=== PATIENT | male | born 1970 | race African-American/Black ===

== ENCOUNTER 2016-08-29 09:27 | Emergency (ER) | payer OTHER ==
[~2016-08-29 09:27] MED LIST: ALDACTONE25 MG PO; ASPIRIN325 MG PO; BENICAR *OUT OF20 MG PO; CATAPRES0.1 MG PO; DRISDOL50000 UNIT PO; EFFIENT10 MG PO; FARXIGA10 MG PO; HCTZ25 MG PO; HUMALOG SQ; LANTUS **100 UNITS/ SQ; LIPITOR40 MG PO; LOPRESSOR25 MG PO; METFORMIN HCL500 MG PO; NORVASC5 MG PO; VICTOZA 2-0.6 MG/0.1 SQ
== END 2016-08-29 12:16 | disposition home or self-care (01) ==
LOC: FER 09:27
DX: M10.022 Idiopathic gout, left elbow (principal); I50.9 Heart failure, unspecified; E11.9 Type 2 diabetes mellitus without complications; Z79.899 Other long term (current) drug therapy
CPT/HCPCS: J1030

== ENCOUNTER 2020-03-20 15:26 | Emergency (ER) | payer OTHER ==
[~2020-03-20 15:26] MED LIST changes: +AMITIZA24 MCG PO; +ANDRODERM1 EAC1 TOP; +BUMETANIDE2 MG PO; +BYSTOLIC10 MG PO; +BYSTOLIC20 MG PO; +K-DUR20 MEQ PO; +LIPITOR80 MG PO; +NIFEDIPINE ER60 M1 PO; +NORCO 5-325 TA1 EACH PO; +NOVOLOG DO100 UNIT/M SC; +NOVOLOG FL100 UNIT/1 SC; +OLMESARTAN MEDO40 MG PO; +TRESIBA FL200 UNIT/1 SC; +VITAMIN D250000 UNIT PO; +ZETIA10 MG PO
[2020-03-20 16:20] LABS: BASOPHIL 0.5 % (0-2); EOSINOPHIL 1.9 % (0-5); HCT 43.2 % (42.0-52.0); HGB 14.6 g/dl (13.2-18.0); LYMPHOCYTE 27.3 % (15-48); MCH 27.9 pg (25.0-31.0); MCHC 33.8 g/dL (32.0-36.0); MCV 82.4 fL (78.0-100.0); MONOCYTE 6.4 % (0-12); MPV 11.4 fL (6.0-9.5); NEUTROPHIL 63.5 % (41-80); NRBC 0; PLT 232 K/uL (150-400); RBC 5.24 M/uL (4.70-6.00); RDW 13.5 % (11.5-14.0); WBC 7.4 K/uL (4.0-10.5)
[2020-03-20 16:30] LABS: INR 0.96 (0.9-1.2); PROTHROMBIN TIME 12.1 SECONDS (11.4-13.6); PTT 26.4 SECONDS (22.2-34.7)
[2020-03-20 17:01] LABS: ALBUMIN 4.1 g/dL (3.4-5.0); BILIRUBIN - TOTAL 0.4 mg/dL (0.2-1.0); BUN/CREAT RATIO (CALC) 19.3 RATIO; CREATININE 1.76 mg/dL (0.67-1.17); GLOBULIN (CALCULATION) 4.9 g/dL; POTASSIUM 3.8 mmol/L (3.5-5.1)
== END 2020-03-20 20:25 | disposition home or self-care (01) ==
LOC: FER 15:26
PROVIDERS: Emergency Medicine
DX: R07.89 Other chest pain (principal); E11.65 Type 2 diabetes mellitus with hyperglycemia; I25.2 Old myocardial infarction; I25.10 Atherosclerotic heart disease of native coronary artery without angina pectoris; E66.9 Obesity, unspecified; Z95.1 Presence of aortocoronary bypass graft; Z95.5 Presence of coronary angioplasty implant and graft; Z79.899 Other long term (current) drug therapy
CPT/HCPCS: 36415; 71045; 80053; 83880; 84484; 85025; 85610; 85730; 93005